=== PATIENT | male | born 1950 | race Caucasian/White ===

== ENCOUNTER → 2017-05-09 | Outpatient (CLI) | payer MEDICARE | END | disposition home or self-care (01) | LOC: PCVCCLINIC 13:22 | PROVIDERS: ATTEND Internal Medicine Cardiovascular Disease | DX: I45.10 Unspecified right bundle-branch block (principal); I25.10 Atherosclerotic heart disease of native coronary artery without angina pectoris; I10 Essential (primary) hypertension; E78.00 Pure hypercholesterolemia, unspecified; Z79.82 Long term (current) use of aspirin; Z87.891 Personal history of nicotine dependence | CPT/HCPCS: 93005; G0463 ==

== ENCOUNTER → 2017-09-19 | Outpatient (CLI) | payer MEDICARE ==
--- NOTE | 2017-09-19 14:37 | PCVCIMAG ---
EXAM: BILATERAL CAROTID DUPLEX INDICATION: Carotid Occlusive Disease. FINDINGS: Doppler Measurements (centimeters per second): RIGHT: Peak CCA-56, Peak ECA-93, Diastolic ICA-29, Peak ICA-75, ICA/CCA Ratio-1.4. LEFT: Peak CCA-92, Peak ECA-99, Diastolic ICA-35, Peak ICA-90, ICA/CCA Ratio-1.0. RIGHT CAROTID: The carotid bulb has minimal plaque. The proximal internal carotid artery shows no significant stenosis. The common carotid artery shows no significant stenosis. The external carotid artery shows no significant stenosis. LEFT CAROTID: The carotid bulb has minimal plaque. The proximal internal carotid artery shows no significant stenosis. The common carotid artery shows no significant stenosis. The external carotid artery shows no significant stenosis. Antegrade flow in both vertebral arteries. IMPRESSION: No significant stenosis of the right internal carotid artery with minimal plaque. No significant stenosis of the left internal carotid artery with minimal plaque. LOC:[id number]
--- NOTE | 2017-09-19 16:52 | PCVCIMAG ---
APPROVED REPORT Exam: Stress Echocardiogram Indication: CAD, Stent, Patient Location: Echo lab Stress Nurse: Iris Brown RN Status: routine Ht: 6 ft 0 in HR: 54 bpm BP: 160/80 mmHg Rhythm: NSR Procedure The patient underwent an Exercise Stress Test using the Satish Protocol. Blood pressure, heart rate, and EKG were monitored. An Echocardiogram was performed by medical coding technician in four stages in quad fashion. At peak stress, four selected images were obtained and placed side by side with resting images for comparison. Stress Test Details Stress Test: Exercise stress testing was performed using a Satish protocol. HR Resting HR: 54 bpmMax Heart Rate (APMHR): 152 bpm Max HR Achieved: 127 bpmTarget HR (85% APMHR): 129 bpm % of APMHR: 83 HR response to stress: Normal HR response to stress BP Resting BP: 160/80 mmHg Max BP: 170/80 mmHg ECG Resting ECG: Sinus Rhythm Stress ECG: Sinus Rhythm Clinical Reason for Termination: Maximal effort Exercise duration: 9 min 14 sec Highest Stage Achieved: Stage 4: 4.2 mph at 16% grade. Exercise capacity: 10.80 METs Overall Exercise Capacity for Age: Normal Pre-Stress Echo The resting Echocardiogram showed normal left ventricular contractility with an estimated Ejection Fraction of about >55%. Normal wall motion in all segments on baseline images. Post-Stress Echo The stress Echocardiogram showed normal left ventricular contractility with an estimated Ejection Fraction of about 55-60%. Normal augmentation of wall motion in all segments on post stress images. Clinical No clinical or ECG evidence for ischemia. Conclusion Clinical Response: Non-ischemic Exercise Capacity: Average Stress ECG Response: Non-ischemic Stress Echo Images: Non-ischemic The left ventricle is normal in size and wall thickness in both the rest and stress images. Other Information Study Quality: Adequate <Conclusion> The left ventricle is normal in size and wall thickness in both the rest and stress images.
== END | disposition home or self-care (01) ==
LOC: PCVCIMAG 11:24
PROVIDERS: ATTEND Internal Medicine Cardiovascular Disease
DX: I25.118 Atherosclerotic heart disease of native coronary artery with other forms of angina pectoris (principal); E78.5 Hyperlipidemia, unspecified; I10 Essential (primary) hypertension; R09.89 Other specified symptoms and signs involving the circulatory and respiratory systems; Z95.9 Presence of cardiac and vascular implant and graft, unspecified
CPT/HCPCS: 93325; 93351; 93880

== ENCOUNTER → 2018-05-22 | Outpatient (CLI) | payer MEDICARE | END | disposition home or self-care (01) | LOC: PCVCCLINIC 13:04 | DX: I25.10 Atherosclerotic heart disease of native coronary artery without angina pectoris (principal); E78.00 Pure hypercholesterolemia, unspecified; R07.9 Chest pain, unspecified; I10 Essential (primary) hypertension; R10.9 Unspecified abdominal pain; Z95.5 Presence of coronary angioplasty implant and graft; Z87.891 Personal history of nicotine dependence; Z79.82 Long term (current) use of aspirin | CPT/HCPCS: 80061; 93005; G0463 ==

== ENCOUNTER → 2018-05-23 | Outpatient (CLI) | payer MEDICARE | END | disposition home or self-care (01) | LOC: PCVCIMAG 15:00 | DX: I25.10 Atherosclerotic heart disease of native coronary artery without angina pectoris (principal); I10 Essential (primary) hypertension; R07.9 Chest pain, unspecified; R10.9 Unspecified abdominal pain; Z95.0 Presence of cardiac pacemaker | CPT/HCPCS: 76700; 93325; 93351 ==

== ENCOUNTER → 2018-10-02 | Outpatient (CLI) | payer MEDICARE | END | disposition home or self-care (01) | LOC: PCVCCLINIC 16:16 | PROVIDERS: ATTEND Internal Medicine Cardiovascular Disease | DX: I25.10 Atherosclerotic heart disease of native coronary artery without angina pectoris (principal); R94.31 Abnormal electrocardiogram [ECG] [EKG]; I10 Essential (primary) hypertension; E78.00 Pure hypercholesterolemia, unspecified; R00.1 Bradycardia, unspecified; I45.10 Unspecified right bundle-branch block; K21.9 Gastro-esophageal reflux disease without esophagitis; Z79.82 Long term (current) use of aspirin; Z87.891 Personal history of nicotine dependence; Z72.89 Other problems related to lifestyle; Z90.49 Acquired absence of other specified parts of digestive tract | CPT/HCPCS: 93005; G0463 ==

== ENCOUNTER → 2019-05-28 | Outpatient (CLI) | payer MEDICARE ==
--- NOTE | 2019-05-28 15:01 | PCVCIMAG ---
APPROVED REPORT Study performed: 05/28/2019 09:49:30 Exam: Stress Echocardiogram Indication: CAD s/p PCI, RBBB, htn, hlp Patient Location: Echo lab Stress Nurse: Iris Brown RN Status: routine Ht: 6 ft 0 in HR: 55 bpm BP: 124/82 mmHg Rhythm: RBBB, bradycardia Procedure The patient underwent an Exercise Stress Test using the Satish Protocol. Blood pressure, heart rate, and EKG were monitored. An Echocardiogram was performed by equine pharmacology technician in four stages in quad fashion. At peak stress, four selected images were obtained and placed side by side with resting images for comparison. Stress Test Details Stress Test: Exercise stress testing was performed using a Satish protocol. HR Resting HR: 55 bpmMax Heart Rate (APMHR): 150 bpm Max HR Achieved: 118 bpmTarget HR (85% APMHR): 127 bpm % of APMHR: 78 Recovery HR: 57 bpm HR response to stress: Normal HR response to stress BP Resting BP: 124/82 mmHg Max BP: 190/84 mmHg Recovery BP: 148/80 mmHg BP response to stress: Normal blood pressure response to stress. ECG Resting ECG: Sinus bradycardia, RBBB Stress ECG: RBBB ST Change: Normal Arrhythmia: bigeminy PVCs at peak exercise Recovery ECG: Sinus Rhythm, RBBB Recovery ST Change: Normal Recovery Arrhythmia: frequent PVCs that resolved in recovery Clinical Reason for Termination: Maximal effort Stress Symptoms: non-limiting chest burning sensation that is consistent with all prior stress testing Exercise duration: 8 min 17 sec Highest Stage Achieved: Stage 3: 3.4 mph at 14% grade. Exercise capacity: 10.4 METs Overall Exercise Capacity for Age: Normal Scale: Active Angina Score: None Pre-Stress Echo The resting Echocardiogram showed normal left ventricular contractility with an estimated Ejection Fraction of about >55%. Normal wall motion in all segments on baseline images. Post-Stress Echo The stress Echocardiogram showed normal left ventricular contractility with an estimated Ejection Fraction of about 65%. Normal augmentation of wall motion in all segments on post stress images. Clinical No clinical or ECG evidence for ischemia. Conclusion Clinical Response: Equivocal- chest burning consistent with prior stress testing Exercise Capacity: Average Stress ECG Response: Non-ischemic Stress Echo Images: Non-ischemic The left ventricle is normal in size and wall thickness in both the rest and stress images. Other Information Study Quality: Adequate <Conclusion> The left ventricle is normal in size and wall thickness in both the rest and stress images.
== END | disposition home or self-care (01) ==
LOC: PCVCIMAG 10:01
PROVIDERS: ATTEND Internal Medicine Cardiovascular Disease
DX: I25.10 Atherosclerotic heart disease of native coronary artery without angina pectoris (principal); I45.10 Unspecified right bundle-branch block; E78.00 Pure hypercholesterolemia, unspecified; I10 Essential (primary) hypertension; Z87.891 Personal history of nicotine dependence
CPT/HCPCS: 93325; 93351